=== PATIENT | female | born 1975 | race Caucasian/White ===

== ENCOUNTER 2017-12-03 13:10 | Emergency (ER) | payer SELFPAY ==
[~2017-12-03] VITALS: Ht 162.6 cm; Wt 57.2 kg
--- NOTE | 2017-12-03 14:41 | CT SCAN REPORT ---
EXAMINATION: CT HEAD WITHOUT CONTRAST CLINICAL INFORMATION: Concussion. Syncope. COMPARISON: None TECHNIQUE: Contiguous axial imaging was performed from the skull base to vertex without intravenous administration of contrast. DLP: 627.51 mGy-cm FINDINGS: There is no evidence of acute intracranial hemorrhage or territorial infarction. No abnormal mass effect or midline shift is seen. Cross to white matter differentiation is well preserved. No extra-axial fluid collections are identified. The ventricles are normal in size. There is no abnormal attenuation within the brain parenchyma. The osseous structures and soft tissues are normal. The mastoid air cells and visualized portions of the paranasal sinuses are well aerated. IMPRESSION: No acute intracranial pathology.
--- NOTE | 2017-12-03 15:24 | ED HEAD/FACIAL INJ COMPLAINT ---
History of Present Illness General Chief Complaint: Headache Stated Complaint: SIB BY WALK IN FOR HEAD INJURY S/P FALL Source: patient Exam Limitations: no limitations Vital Signs & Intake/Output Vital Signs & Intake/Output Vital Signs Date Time Temp Pulse Resp B/P B/P Pulse O2 O2 Flow FiO2 Mean Ox Delivery Rate 12/03 1531 99 Room Air 12/03 1319 97.0 73 18 124/85 98 Room Air Allergies Coded Allergies: No Known Drug Allergies (NKDA 12/03/17) Reconcile Medications No Known Home Medications Triage Note: PT TO ED C/O HEADACHE S/P STANDING UP AND HITTING HEAD ON DOUBLE STACKED WASHER/DRYER UNIT ON 12/01. STATES "I BLACKED OUT" "I WAS TIRED ALL DAY" DNEIES N/V/VISION CHANGES. Triage Nurses Notes Reviewed? yes Onset: Abrupt Severity: mild, moderate Severity Numbers: 2 Location: global Method of Injury: direct blow Loss of Consciousness: brief (seconds) Associated Symptoms: fatigue LMP (ages 10-50): unknown : No Patient currently breastfeeds: No HPI: 42 year old female with no medical hx presents for eval of a head injury. pt rpeorts that 2 days agp she was doing laundry and bent down to picker clthes and when she was comming back up she hit her head on the open dryer door. she states that she fell down onto a pile of cloths and is unsure if she lost consciounss. she states that for the remiander of the day she was very tired and had a headache. since then her headache has improved and is currently 2/10. pain loctaed globally. no vomiting. the headache and fatigue have improvmed signbificantly since first starting. no blood thinners. no changes in vision, fever neck pain or any other injuries/symptoms. she is not taking any meds FOR PAIN. Past History Travel History Traveled to [place] past 21 day No Medical History Any Pertinent Medical History? see below for history Neurological: NONE EENT: NONE Cardiovascular: NONE Respiratory: NONE Gastrointestinal: NONE Hepatic: NONE Renal: NONE Musculoskeletal: NONE Psychiatric: NONE Endocrine: NONE Surgical History Surgical History: non-contributory Psychosocial History What is your primary language B[place] Tobacco Use: Quit >30 days ago ETOH Use: occasional use Illicit Drug Use: denies illicit drug use Family History Hx Contributory? No Review of Systems Review of Systems Constitutional: Reports: no symptoms. EENTM: Reports: no symptoms. Respiratory: Reports: no symptoms. Cardiovascular: Reports: no symptoms. GI: Reports: no symptoms. Genitourinary: Reports: no symptoms. Musculoskeletal: Reports: no symptoms. Skin: Reports: no symptoms. Neurological/Psychological: Reports: see HPI, headache. Hematologic/Endocrine: Reports: no symptoms. Immunologic/Allergic: Reports: no symptoms. All Other Systems: Reviewed and Negative Physical Exam Physical Exam General Appearance: well developed/nourished, no apparent distress, alert, awake Head: atraumatic, normal appearance, NO BRUSING SWELLIJNG OR ABRASIONS. NO LACERATIONS. Eyes: Bilateral: normal appearance, PERRL, EOMI. Ears, Nose, Throat: normal pharynx, normal ENT inspection, hearing grossly normal Neck: normal inspection, supple, full range of motion Respiratory: normal breath sounds, chest non-tender, no respiratory distress, lungs clear Cardiovascular: regular rate/rhythm Gastrointestinal: soft, non-tender Back: normal inspection, normal range of motion, no vertebral tenderness Extremities: normal inspection, normal range of motion, no edema Psychiatric: awake, alert, oriented x 3 Cranial Nerves: normal hearing, normal speech, PERRL Coordination/Gait: normal finger to nose, normal gait, NEGATIVE ROMBERG Motor/Sensory: no motor/sensory deficits Skin: intact, normal color, warm/dry Progress Differential Diagnosis: c-spine injury, facial fracture, globe injury, ICH, orbit fracture, skull fracture, CONCUSSION Plan of Care: Orders Procedure Date/time Status URINE 12/03 1324 Complete Laboratory Tests 12/03/17 1335: Urine Test NEGATIVE PT SEEN AND EVALUETED. EXAM IS WNL. SYMPTOMS ARE IMPROVING. [facility] HEAD IS NEGATIVE. ADVISED REST, AVOID PHYSICAL ACITIVTY. TYLENOL FOR PAIN. FOLLOW UP WITH PCP. RESUME ADDITIONAL ACTIVITIES AFTER ASYMPTOMATIC FOR 3 DAYS. DISCUSSED RETURN PRECAUTIONS. PT IS NON-TOXIC APPEARING AND AGREES WITH PLAN. Diagnostic Imaging: Viewed by Me: CT Scan. Discussed w/RAD: CT Scan. Radiology Impression: PATIENT: ENID HARRISON PRESENT AGE: 42 PATIENT ACCOUNT NO: [id number] : 76 LOCATION: [facility] ORDERING PHYSICIAN: Clint Main MD SERVICE DATE: 12/03/17 EXAM TYPE : CAT - CT HEAD WO IV CONTRAST EXAMINATION: CT HEAD WITHOUT CONTRAST CLINICAL INFORMATION: Concussion. Syncope. COMPARISON: None TECHNIQUE: Contiguous axial imaging was performed from the skull base to vertex without intravenous administration of contrast. DLP: 627.51 mGy-cm FINDINGS: There is no evidence of acute intracranial hemorrhage or territorial infarction. No abnormal mass effect or midline shift is seen. Cross to white matter differentiation is well preserved. No extra-axial fluid collections are identified. The ventricles are normal in size. There is no abnormal attenuation within the brain parenchyma. The osseous structures and soft tissues are normal. The mastoid air cells and visualized portions of the paranasal sinuses are well aerated. IMPRESSION: No acute intracranial pathology. DICTATED BY: Jorge Luis Hobbs MD DATE/TIME DICTATED: 12/03/171434 REPAIRER HELPER:ZULMA DATE/TIME TRANSCRIBED:12/03/171434 Departure Departure Disposition: HOME OR SELF CARE Condition: Stable Clinical Impression Primary Impression: Minor head injury Qualifiers: Encounter type: initial encounter Qualified Code: S00.90XA - Unspecified superficial injury of unspecified part of head, initial encounter Referrals: Patient Has No Primary Care Dr (PCP/Family) Additional Instructions: REST AVOID EXcessive physical activity. Tylenol 1000mg every 6 hours as needed for pain. apply ice to affected area for 15-20 min every few hours. avoid activity that could put you at rest for additional injury. monitor symptoms return with any concerns. Departure Forms: Customer Survey General Discharge Information Prescriptions: Current Visit Scripts No Known Home Medications
[2017-12-03 15:44] VITALS: BP 124/79
== END 2017-12-03 15:45 ==
LOC: ERH 13:10
DX: S09.90XA Unspecified injury of head, initial encounter (principal); W22.8XXA Striking against or struck by other objects, initial encounter; Y93.E2 Activity, laundry; Y92.9 Unspecified place or not applicable
CPT/HCPCS: 81025